=== PATIENT | female | born 1960 | race Caucasian/White ===

== ENCOUNTER 2016-08-25 18:17 | Emergency (ER) | payer BC ==
[2016-08-25 18:32] VITALS: BP 127/84; PULSE 92; TEMP 98.6; BMI 35.4
--- NOTE | 2016-08-25 19:06 | PDOC ---
History of Present Illness - General History Source: Patient Exam Limitations: No Limitations <Jimmy Rankin I - Last Filed: 08/25/16 19:13> - General History Source: Patient Exam Limitations: No Limitations - History of Present Illness Initial Comments: 08/25/16 19:29 The patient is a 56 year old female, with no significant past medical history, who presents to the emergency department complaining of fever, chills, body aches, and sinus pressure for approximately 3 days. The patient reports visiting her PA yesterday, who diagnosed her with a sinus infection. Patient reports she was prescribed a Z-Pack and has also been taking tylenol and ibuprofen for her fever. However, last night patient reports her TMax was approximately 102 F. Patient reports associated chills, to the point where she chipped a tooth. This afternoon patient placed a call to her PA due to persistent symptoms, and was recommended to follow up in the ED. Patient denies any cough, headache, or dizziness. She denies any nausea or vomiting. She denies any recent travel or sick contacts. PAST MEDICAL HISTORY: no significant history PAST SURGICAL HISTORY: Right oophorectomy, cholecystectomy. FAMILY HISTORY: no pertinent history SOCIAL HISTORY: Pt lives with family and is employed. Former smoker. No ETOH or drug use. MEDICATIONS: reviewed ALLERGIES: As per nursing notes General: Yes: +fever, +chills, +body aches. No weakness, no weight loss HEENT: Yes: +chipped tooth, +sinus pressure. No change in vision. No sore throat. No ear pain CardioVascular: No chest pain or shortness of breath Respiratory: No cough, or wheezing. Gastrointestinal: No nausea, vomiting, diarrhea or constipation, No rectal bleeding Genitourinary: No dysuria, hematuria, or frequency Musculoskeletal: No joint or muscle pain or swelling Neurologic: No headache, vertigo, dizziness or loss of consciousness Skin: No rashes or easy bruising Endocrine: no increased thirst or abnormal weight change Allergic: no skin or latex allergy All other systems reviewed and normal GENERAL: The patient is awake, alert, and fully oriented, in no acute distress. HEAD: Tenderness on palpation of the frontal and ,axillary sinuses. No meningeal signs Otherwise normal with no signs of trauma. EYES: Pupils equal, round and reactive to light, extraocular movements intact, sclera anicteric, conjunctiva clear. EXTREMITIES: Normal range of motion, no edema. NEUROLOGICAL: Normal speech, normal gait. PSYCH: Normal mood, normal affect. SKIN: Warm, Dry, normal turgor, no rashes or lesions noted. 08/25/16 19:30 <Anca Rubio - Last Filed: 08/25/16 19:30> - General Chief Complaint: Cold Symptoms Stated Complaint: FEVER,SINUS INFECTION Time Seen by Provider: 08/25/16 19:05 Past History - Past Medical History Other medical history: PT DENIES - Surgical History Abdominal Surgery: Yes (RIGHT OOPHERECTOMY) Cholecystectomy: Yes - Psycho/Social/Smoking Cessation Hx Anxiety: No Suicidal Ideation: No Smoking History: Former smoker Have you smoked in the past 12 months: No If you are a former smoker, when did you quit?: 1 year ago Information on smoking cessation initiated: No Hx Alcohol Use: No Drug/Substance Use Hx: No Substance Use Type: None <Jimmy Rankin I - Last Filed: 08/25/16 19:13> <Anca Rubio - Last Filed: 08/25/16 19:30> - Past Medical History Allergies/Adverse Reactions: Allergies Allergy/AdvReac Type Severity Reaction Status Date / Time No Known Allergies Allergy Verified 08/25/16 18:26 Home Medications: Ambulatory Orders Azithromycin [Zithromax -] 0 mg PO DAILY 08/25/16 Fluticasone Prop 0.05% Nasal [Flonase -] 1 - 2 spray NS DAILY 08/25/16 L.acidoph,Paracasei, B.lactis [Probiotic] 1 each PO DAILY 08/25/16 Multivitamin [Poly-Vitamin] 1 each PO DAILY 08/25/16 *Physical Exam - Vital Signs Last Vital Signs Temp Pulse Resp BP Pulse Ox 98.6 F 92 H 18 127/84 100 08/25/16 18:18 08/25/16 18:18 08/25/16 18:18 08/25/16 18:18 08/25/16 18:18 <Jimmy Rankin I - Last Filed: 08/25/16 19:13> - Vital Signs Last Vital Signs Temp Pulse Resp BP Pulse Ox 98.6 F 92 H 18 127/84 100 08/25/16 18:18 08/25/16 18:18 08/25/16 18:18 08/25/16 18:18 08/25/16 18:18 <Anca Rubio - Last Filed: 08/25/16 19:30> ED Treatment Course - Medications Given in the ED: ED Medications Discontinued Medications Generic Name Dose Route Start Last Admin Trade Name Mel PRN Reason Stop Dose Admin Acetaminophen 650 mg 08/25/16 19:16 08/25/16 19:21 Tylenol - PO 08/25/16 19:17 650 mg ONCE ONE Administration <Acna Rubio - Last Filed: 08/25/16 19:30> *DC/Admit/Observation/Transfer - Discharge Dispostion Admit: No <Jimmy Rankin I - Last Filed: 08/25/16 19:13> - Attestations Scribe Attestion: 08/25/16 19:30 Documentation prepared by Anca Rubio, acting as medical doctor for Jimmy Rankin MD. <Anca Rubio - Last Filed: 08/25/16 19:30> Diagnosis at time of Disposition: Sinusitis, acute Qualifiers: Sinusitis location: maxillary - Discharge Dispostion Disposition: HOME Condition at time of disposition: Fair - Patient Instructions Printed Discharge Instructions: DI for Sinusitis Additional Instructions: Get an [id number] decongestant during the daytime said something like pseudoephedrine. At nighttime you can take NyQuil. For the fever alternate acetaminophen with ibuprofen 2 tablets every 3 hours. Continue the azithromycin as prescribed. Return to the emergency department immediately with ANY new, persistent or worsening symptoms. Continue any medications as previously prescribed by your physician. You should follow up with your primary doctor as soon as possible regarding today's emergency department visit. . Please make sure your doctor reviews the results of your emergency evaluation. Thank you for coming to the Emergency Department today for your care. It was a pleasure to see you today. Please note that your evaluation is INCOMPLETE until you follow-up with your doctor.
[2016-08-25] MEDS ORDERED: ACETAMINOPHEN 325 MG TABLET (FP) PO ONE (19:16)
[2016-08-25] MEDS ORDERED: ACETAMINOPHEN 325 MG TABLET (FP) ONE (19:17)
== END 2016-08-25 19:23 | disposition home or self-care (01) ==
LOC: FER 18:17
DX: J32.9 Chronic sinusitis, unspecified (principal); Z87.891 Personal history of nicotine dependence
CPT/HCPCS: 99281-25